=== PATIENT | female | born 1960 | race Asian ===

== ENCOUNTER 2017-04-01 05:41 | Outpatient (CLI) | payer BC ==
[~2017-04-01] VITALS: Ht 165.1 cm; Wt 55.8 kg
[~2017-04-01 05:41] MED LIST: SITA1TAB2 PO
[2017-04-01] MEDS ORDERED: SITA1TAB6 PO (11:15)
[2017-04-01] MEDS ORDERED: ATOR20TA66 PO (11:15)
== END 2017-04-01 11:35 ==
LOC: PREOP 05:41
PROVIDERS: ATTEND Internal Medicine
DX: Z01.818 Encounter for other preprocedural examination (principal); Z86.010 Personal history of colon polyps

== ENCOUNTER 2017-04-03 07:27 | Day surgery (SDC) | payer BC ==
[~2017-04-03] VITALS: Ht 165.1 cm; Wt 55.8 kg
[~2017-04-03 07:27] MED LIST changes: +ATOR20TA66 PO; +SITA1TAB6 PO
--- OUTSIDE RECORDS SUMMARY | 2017-04-03 07:30 | XMS REPORT | Continuity of Care Document ---
Author Author [facility] Address Unknown Phone Unavailable Care Team Providers Care Accountant Assistant Name Role Phone No Pcp, Na PCP Unavailable Source Comments Some departments are not documenting in the electronic medical record. If you do not see the information that you expected, contact Release of Information in the Health Information Management department at [phone] for further assistance in locating additional records.[facility] Active Allergies and Adverse Reactions No Known Allergies Current Medications Prescription Sig. Disp. Refills Start End Date Status Date sitaGLIPtin (JANUVIA) 100 Take 100 mg by mouth Active mg tab tablet daily. atorvastatin (LIPITOR) 10 Take 10 mg by mouth Active mg tablet daily. Active Problems Problem Noted Date Right shoulder pain 02/25/2016 Social History Tobacco Use Types Packs/Day Years Used Date Never Smoker Smokeless Tobacco: Never Used Tobacco Cessation: Counseling Given: Yes Comments: Alcohol Use Drinks/Week oz/Week Comments No 0 Standard 0.0 drinks or equivalent Last Filed Vital Signs Vital Sign Reading Time Taken Blood Pressure 131/76 02/25/2016 2:46 PM CDT Pulse 89 02/25/2016 2:46 PM CDT Temperature - - Respiratory Rate - - Height 1.651 m (5' 5") 02/25/2016 2:46 PM CDT Weight 59.421 kg (131 lb) 02/25/2016 2:46 PM CDT Body Mass Index 21.8 02/25/2016 2:46 PM CDT Oxygen Saturation - - Plan of Care Health Maintenance Due Date Last Done Comments Hepatitis C Screening 1959 Physical (Comprehensive) 1966 Exam Pertussis Vaccine 1970 Tetanus Vaccine 02/21/1976 Cervical Cancer Screening 02/21/1980 Breast Cancer Screening 1999 Colorectal Cancer 2009 Screening Influenza Vaccine 05/22/2017 Results from Last 3 Months Not on file
--- OUTSIDE RECORDS SUMMARY | 2017-04-03 07:31 | XMS REPORT | Continuity of Care Document ---
Author Author [facility] Organization [facility] Address Unknown Phone Unavailable Allergies Active Description Code Type Severity Reaction Onset Reported/Identified Relationship to Patient Clinical Status Yes No Allergy Information Available [id number] Drug Allergy Unknown N/A 04/09/2012 Yes No Known Drug Allergies [id number] Drug Allergy Unknown N/ A 04/01/2017 Medications Problems Date Dx Coded Attending Type Code Diagnosis Diagnosed By 04/09/2012 Ot 211.3 BENIGN NEOPLASM LG BOWEL 04/09/2012 Ot 250.00 DIAB JUNE WO COMPL, TYPE II OR UNSPEC TY 04/09/2012 Ot 618.04 RECTOCELE 04/09/2012 Ot V76.51 SCREEN MAL NEOP-COLON 04/12/2015 KATLIN TABARSE MD Ot V76.12 04/01/2016 Ot V76.12 OTH SCREEN MAMMO-MALIGN NEOPLASM OF KEVIN 04/01/2016 Ot V72.84 EXAM PRE-OPERATIVE NOS 04/01/2016 Ot V76.12 OTH SCREEN MAMMO-MALIGN NEOPLASM OF KEVIN 04/01/2016 KATLIN TABARES MD Ot V76.12 OTH SCREEN MAMMO-MALIGN NEOPLASM OF KEVIN 04/01/2016 SANKET SANDY DO Ot 627.2 SYMPT MENOPAUSE OR FEMALE CLIMACTERIC ST 04/01/2016 KATLIN TABARES MD Ot V76.12 OTH SCREEN MAMMO-MALIGN NEOPLASM OF KEVIN 04/02/2016 KATLIN TABARES MD Ot Z12.31 ENCNTR SCREEN MAMMOGRAM FOR MALIGNANT NE 04/18/2016 KATLIN TABARES MD Ot Z12.31 ENCNTR SCREEN MAMMOGRAM FOR MALIGNANT NE Procedures Results Encounters ACCT No. Visit Date/Time Discharge Status Pt. Type Provider Facility Loc./Unit Complaint [id number] 04/01/2017 05:41:00 2016 11:35:00 DIS Outpatient KATLIN TABARES MD [facility] PREOP SCREENING COLONOSCOPY [id number] 03/30/2015 10:16:00 2014 23:59:59 CLS Outpatient KATLIN TABARES MD [facility] RAD [id number] 09/16/2013 08:20:00 2012 23:59:59 CLS Outpatient [facility] [facility]ET Hodgson [facility] RAD [id number] 06/21/2013 15:07:00 2012 23:59:59 CLS Outpatient KATLIN TABARES MD [facility] RAD [id number] 04/03/2017 08:45:00 PEN KATLIN Melchor MD [facility] ENDO SCREENING/ HX POLYPS [id number] 03/23/2017 11:02:00 PEN Preadmit KATLIN TABARES MD [facility] RAD ROUTINE SCREENING [id number] 04/01/2016 09:22:00 ACT Outpatient KATLIN TABARES MD [facility] RAD [id number] 05/12/2012 15:27:00 Document Registration [id number] 04/09/2012 07:57:00 Document Registration [id number] 04/07/2012 07:04:00 Document Registration [id number] 04/15/2011 09:49:00 Document Registration
[2017-04-03] MEDS ORDERED: 1/2 NS IV SOLUTION 1,000 ML IV STA (07:36)
[2017-04-03] MEDS ORDERED: LIDOCAINE JELLY 2% (XYLOCAINE) 5 ML TUBE MM PRN (07:45)
[2017-04-03] MEDS ORDERED: MIDAZOLAM 2 MG/2 ML (VERSED) VIAL IVP PRN (07:45)
--- NOTE | 2017-04-03 07:52 | Pre-Op Note & Conscious Sedat ---
Pre-Operative Progress Note H&P Reviewed The H&P was reviewed, patient examined and no changes noted. Date H&P Reviewed: Apr 03, 2017 Time H&P Reviewed: 07:51 Conscious Sedation Pre-Proced ASA Class: 2 Airway Mallampati Classification: (tejon appropriate class) I. II. III, IV Lungs Heart ASA score ASA 1: a normal healthy patient ASA 2: a patient with a mild systemic disease (mid diabetes, controlled hypertension, obesity ASA 3: a patient with a severe systemic disease that limits activity (angina , COPD, prior Myocardial infarction) ASA 4: a patient with an incapacitating disease that is a constant threat to life (CHF, renal failure) ASA 5: a moribund patient not expected to survive 24 hrs. (ruptured aneurysm) ASA 6: a declared brain patient whose organs are being harvested. For emergent operations, add the letter E after the classification Grade 2 Sedation Plan: Analgesia, Amnesia, Plan communicated to team members, Discussed options with patient/fam, Discussed risks with patient/fam Note The patient is an appropriate candidate to undergo the planned procedure, sedation, and anesthesia. The patient immediately re-assessed prior to indication. KATLIN TABARES MD Apr 03, 2017 07:51
[2017-04-03 07:55] VITALS: BP 127/70
[2017-04-03] MEDS ORDERED: fentaNYL INJECTION 100 MCG/2 ML AMP ONE (08:07)
[2017-04-03] MEDS ORDERED: LIDOCAINE JELLY 2% (XYLOCAINE) 5 ML TUBE ONE (08:07)
[2017-04-03] MEDS ORDERED: MIDAZOLAM 2 MG/2 ML (VERSED) VIAL ONE ×2 (08:07→08:08)
[2017-04-03] MEDS: fentaNYL INJECTION 100 MCG/2 ML AMP IVP PRN ×2 (08:24→08:35)
[2017-04-03 09:05] VITALS: BP 121/77
[2017-04-03 09:35] VITALS: BP 124/77
[2017-04-03 10:10] VITALS: BP 124/77
--- NOTE | 2017-04-03 11:02 | HISTORY AND PHYSICAL ---
DATE OF ADMISSION: 04/03/2017 Ms. Feldman is a 57-year-old white female who presented to the office on 03/23/2017 for a routine follow-up for diabetes type 2. She had undergone her first colonoscopy 5 years ago, at which time she had one tubular adenoma removed from the hepatic flexure. She is being set-up for surveillance colonoscopy. She reports that she has been feeling well. She has been exercising on a regular basis and has maintained normal weight. Her A1c was down from 7.1% to 6.6%. She denies any chest discomfort, dyspnea on exertion, orthopnea, PND, pedal edema or numbness in her feet. Her energy level has been good. FAMILY HISTORY: She is not aware of any family history for colon cancer or polyps. 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 She is with adult children. PHYSICAL EXAMINATION: Reveals an [place] female who appears to be in no acute distress. She is alert, well kempt and articulate. Weight is stable at 123.4 pounds. Blood pressure 140/76. NECK: Revealed no JVD, adenopathy, bruits or thyroid abnormalities to palpation. She is a Mallampati class I pharyngeal configuration. Pharynx is clear. CHEST: Clear. CV: Revealed a regular rate and rhythm without murmur, S3 or S4. ABDOMEN: Soft, supple without masses, organomegaly or tenderness. EXTREMITIES: Reveal no cyanosis, clubbing, or edema. Sensation is intact. No calluses corns or evidence for tinea pedis or onychomycosis are noted. ASSESSMENT: 1. Type 2 diabetes mellitus, under good control without evidence for complication. She was praised for her efforts. I pointed out the positive impact it was having on her blood sugar control and reducing future risk for diabetic complication. 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 2. History of colon polyps. The patient is set-up for surveillance colonoscopy on 04/03/2017 as it has been 5 years since her last procedure. At that time she had a tubular adenoma removed from the hepatic flexure. Prep instructions with the H[employer]ado-prep kit were given and questions were answered. I am her primary care physician. Job ID: [id number] Dictated Date: 03/23/2017 16:06:00 Registration Specialist Date: 03/23/2017 17:11:45/garrison
--- NOTE | 2017-04-06 09:02 | PROCEDURE REPORT ---
PROCEDURE PHYSICIAN: KATLIN TABARES DATE OF PROCEDURE: 04/03/2017 INDICATION FOR THE PROCEDURE: Screening colonoscopy. PROCEDURE: The patient was placed in the left lateral decubitus position. Prior to undergoing colonoscopy, digital rectal evaluation was performed. Anal sphincter tone was normal and the perianal reflex was intact. No abnormalities were noted to digital inspection of the anal canal or distal rectal vault. The colonoscope was then inserted into the rectum and under visualization, advanced to cecum. The cecum was identified by identification of the cecal valve and cecal strap. Photographic documentation was performed. Careful inspection was made as colonoscope was withdrawn. FINDINGS: There were no evidence for internal or external hemorrhoids and the rectum was unremarkable. The sigmoid colon was unremarkable as well. There was one diminutive 2 mm sessile hyperplastic appearing polyp noted in the distal transverse colon. Due to its location I was only able to grasp below the base and cauterize. A photograph was obtained prior to cauterization. There was no evidence to suggest any remaining polyp tissue but it was not submitted as I was not able to grasp the head of small polyp. There was no subsequent blood loss. The remainder of the transverse colon was unremarkable. Present in the mid ascending and distal descending colon were 2 diminutive polyps. They were photographed and biopsied and ablated with no subsequent blood loss. No other abnormalities were noted in the remainder colonoscopy to the cecum. ASSESSMENT: 3 diminutive polyps were removed, only 2 were submitted as noted above all with benign appearance. There was no subsequent blood loss. This was an otherwise normal colonoscopy to cecum. We will await histopathology report before recommending future surveillance colonoscopy interval will likely be 5 years considering this patient's past history of colonic polyps. Job ID: [id number] Dictated Date: 04/03/2017 10:25:18 Business Analysis Specialist Date: 04/06/2017 08:53:05 / nestor
== END 2017-04-03 10:10 | disposition home or self-care (01) ==
LOC: ENDO 07:27
PROVIDERS: ATTEND Internal Medicine
DX: Z12.11 Encounter for screening for malignant neoplasm of colon (principal); D12.2 Benign neoplasm of ascending colon; D12.4 Benign neoplasm of descending colon; Z86.010 Personal history of colon polyps; E11.9 Type 2 diabetes mellitus without complications; Z79.899 Other long term (current) drug therapy
CPT/HCPCS: 82962

== ENCOUNTER → 2017-04-14 | Outpatient (CLI) | payer BC ==
--- NOTE | 2017-04-16 14:29 | Diagnostic Imaging Report ---
Bilateral screening mammogram 2D views with tomosynthesis. The current study was also evaluated with a Computer Aided Detection (CAD) system. INDICATION: Screening. No current complaints stated on the questionnaire. COMPARISON: 04/01/16. FINDINGS: The breasts are composed of scattered fibroglandular densities. There are benign-appearing calcifications seen. Benign-appearing calcifications of secretory type are prominent in the medial inferior aspect of the left breast. Allowing for technique and positional differences, no suspicious change is seen. IMPRESSION: No significant change. ACR BI-RADS Category 2: Benign findings. Result letter will be mailed to the patient. Note: At least 10% of breast cancer is not imaged by mammography. Dictated by: Dictated on workstation # [id number]
== END ==
LOC: RAD 13:12
PROVIDERS: ATTEND Internal Medicine
DX: Z12.31 Encounter for screening mammogram for malignant neoplasm of breast (principal)
CPT/HCPCS: 77067

== ENCOUNTER → 2018-04-15 | Outpatient (CLI) | payer BC ==
--- NOTE | 2018-04-15 14:32 | Diagnostic Imaging Report ---
EXAMINATION: Digital mammogram bilateral screening with 3D tomosynthesis. INDICATION: Screening. COMPARISON: This study was compared to the prior exams of 04/14/2017, 04/01/2016, and 03/30/2015. At this time, there are no current complaints. The current study was also evaluated with Computer Aided Detection (CAD) system. FINDINGS: The fibroglandular tissue in both breasts is heterogeneously dense. This does limit the sensitivity of this exam. Overall, there does not appear to have been any significant change when compared to the prior study. No primary or secondary sign of malignancy is noted. 3D tomographic images fail to show any sign of malignancy. IMPRESSION: There is no radiographic evidence for malignancy. ACR BI-RADS Category 1: Negative. Result letter will be mailed to the patient. Note: At least 10% of breast cancer is not imaged by mammography. Dictated by: Dictated on workstation # [id number]
== END ==
LOC: RAD 10:02
PROVIDERS: ATTEND Internal Medicine
DX: Z12.31 Encounter for screening mammogram for malignant neoplasm of breast (principal)
CPT/HCPCS: 77067

== ENCOUNTER → 2019-08-30 | Outpatient (CLI) | payer BC ==
--- NOTE | 2019-08-30 10:11 | Diagnostic Imaging Report ---
INDICATION: Screening The current study was also evaluated with a Computer Aided Detection (CAD) system. 3-D Tomographic imaging was also performed. Comparison made with prior examination of 04/15/2018, 04/14/2017 and 04/01/2016. FINDINGS: There are scattered fibroglandular densities bilaterally. There are benign type calcifications scattered throughout both breasts. There is no dominant mass, spiculated lesion or suspicious calcification identified. Skin, nipples and axilla are unremarkable. IMPRESSION: Category 2 benign. ACR BI-RADS Category 2: Benign findings. Result letter will be mailed to the patient. Note: At least 10% of breast cancer is not imaged by mammography. Dictated by: Dictated on workstation # [id number]
== END ==
LOC: RAD 09:31
PROVIDERS: ATTEND Internal Medicine
DX: Z12.31 Encounter for screening mammogram for malignant neoplasm of breast (principal)
CPT/HCPCS: 77067

== ENCOUNTER → 2021-01-10 | Outpatient (CLI) | payer BC ==
--- NOTE | 2021-01-10 12:59 | Diagnostic Imaging Report ---
Indication: Routine screening Comparison is made with prior mammogram from 08/30/2019 and 04/15/2018. 2-D and 3-D bilateral screening mammography was performed with CAD. Both breasts remain heterogeneously dense, limiting the sensitivity of mammography. Benign calcifications in both breasts are again noted. There is no mass or malignant appearing microcalcifications. Axillae are unremarkable. IMPRESSION: BI-RADS Category 2 No mammographic features suspicious for malignancy are identified. ACR BI-RADS Category 2: Benign findings. Result letter will be mailed to the patient. Note: At least 10% of breast cancer is not imaged by mammography. Dictated by: Dictated on workstation # [id number]
== END ==
LOC: RAD 10:18
PROVIDERS: ATTEND Internal Medicine
DX: Z12.31 Encounter for screening mammogram for malignant neoplasm of breast (principal)
CPT/HCPCS: 77063; 77067

== ENCOUNTER 2021-01-31 10:40 | Outpatient (RCR) | payer BC ==
[~2021-01-31] VITALS: Ht 165.1 cm; Wt 55.0 kg
[2021-02-05] MEDS ORDERED: OMEP20CA18 PO (07:58)
== END 2021-05-01 | disposition home or self-care (01) ==
LOC: PREOP 10:40
PROVIDERS: ATTEND Internal Medicine
DX: Z01.818 Encounter for other preprocedural examination (principal)

== ENCOUNTER → 2021-02-01 | Outpatient (CLI) | payer BC ==
[~2021-02-01] MED LIST changes: +OMEP20CA18 PO
== END ==
LOC: LABNPT 08:48
PROVIDERS: ATTEND Internal Medicine
DX: Z20.822 Contact with and (suspected) exposure to COVID-19 (principal)
CPT/HCPCS: 87635

== ENCOUNTER 2021-02-05 07:01 | Day surgery (SDC) | payer BC ==
--- NOTE | 2021-01-31 20:27 | HISTORY AND PHYSICAL ---
DATE OF SERVICE: EGD HISTORY AND PHYSICAL DATE OF ADMISSION: 02/05/2021. HISTORY OF PRESENT ILLNESS: The patient is a 60-year-old white female seen for followup of type 2 diabetes. She reports she has been having a 1-month history of epigastric pain. It is improved with Zantac that she takes at bedtime, if does not, she wakes up with epigastric pain. She denies any radiation of her pain into the chest or the back. She denies associated nausea. She denies aspirin or nonsteroidal medication usage. She has not had pain like this before. She has not been aware of melena or bright red blood per rectum. If she eats, her discomfort seems to be better for a while. She reports that her weight has been stable and her weight was up only a tenths of a pound compared to her last office visit in April of last year. PHYSICAL EXAMINATION: GENERAL: Reveals a white female appeared to be in no acute distress. VITAL SIGNS: Blood pressure 150/80. ABDOMEN: Reveals some epigastric discomfort to palpation without rebound or guarding. Bowel sounds positive. No distention noted. No rebound or guarding noted. No mass or organomegaly appreciated. CHEST: Clear to auscultation. CARDIOVASCULAR: Reveals a regular rate and rhythm without murmur, S3 or S4. EXTREMITIES: Reveal no cyanosis, clubbing or edema. LABORATORY DATA: Blood tests were reviewed with the patient including a chemistry panel that revealed a fasting sugar of 135, otherwise normal. Unremarkable lipid panel with an HDL of 44 and LDL of 58 and triglyceride level of 121 with an A1c of 7. ASSESSMENT AND PLAN: 1. For further investigation of epigastric pain requiring regular H2 cara therapy, the patient is being set up for EGD on the . Prep instructions were given and questions were answered. 2. Type 2 diabetes mellitus under reasonable control. See above. Follow up in three months. Continue [id number] 150 mg Zantac at bedtime for now. Further recommendations pending EGD evaluation. Job ID: [id number] DocumentID: [id number] Dictated Date: 01/30/2021 16:48:53 Salvage Engineer Date: 01/30/2021 17:46:32 Dictated By: KATLIN TABARES MD
[2021-02-05] VITALS (9 sets, daily range): BP systolic 107–156; BP diastolic 58–80
[~2021-02-05] VITALS: Ht 165.1 cm; Wt 55.0 kg
[~2021-02-05 07:01] MED LIST changes: -OMEP20CA18 PO
[2021-02-05] MEDS ORDERED: LACTATED RINGERS 1,000 ML IV ONE ×2 (07:03→07:45)
[2021-02-05] MEDS ORDERED: D5 LR IV SOLUTION 1,000 ML IV STA (07:04)
[2021-02-05] MEDS ORDERED: HURRICAINE EXT TUBE (BENZOCAINE) XX PRN (07:15)
[2021-02-05] MEDS ORDERED: MIDAZOLAM 5 MG/5 ML (VERSED) VIAL IV ONE (07:15)
[2021-02-05] MEDS ORDERED: fentaNYL INJ 100 MCG/2 ML AMP IVP ONE (07:15)
[2021-02-05] MEDS ORDERED: LIDOCAINE JELLY 2% 6 ML SYRINGE MM PRN (07:15)
[2021-02-05] MEDS ORDERED: LIDOCAINE JELLY 2% 6 ML SYRINGE ONE (07:19)
[2021-02-05] MEDS ORDERED: fentaNYL INJ 100 MCG/2 ML AMP ONE (07:20)
[2021-02-05] MEDS ORDERED: MIDAZOLAM 5 MG/5 ML (VERSED) VIAL ONE (07:20)
[2021-02-05] MEDS ORDERED: HURRICAINE EXT TUBE (BENZOCAINE) ONE (07:20)
--- NOTE | 2021-02-05 07:56 | Pre-Op Note & Conscious Sedat ---
Pre-Operative Progress Note H&P Reviewed The H&P was reviewed, patient examined and no changes noted. Date H&P Reviewed: February 05, 2021 Time H&P Reviewed: 07:30 Conscious Sedation Pre-Proced ASA Score 2 For ASA 3 and 4: Consider anesthesia and medical clearance. Also, for patients with a history of failed moderate sedation consider anesthesia. Airway Lungs Heart ASA score ASA 1: a normal healthy patient ASA 2: a patient with a mild systemic disease (mid diabetes, controlled hypertension, obesity ASA 3: a patient with a severe systemic disease that limits activity (angina, COPD, prior Myocardial infarction) ASA 4: a patient with an incapacitating disease that is a constant threat to life (CHF, renal failure) ASA 5: a moribund patient not expected to survive 24 hrs. (ruptured aneurysm) ASA 6: a declared brain- patient whose organs are being harvested. For emergent operations, add the letter E after the classification Mallampati Classification Grade 2 Sedation Plan Analgesia, Amnesia, Plan communicated to team members, Discussed options with patient/fam, Discussed risks with patient/fam The patient is an appropriate candidate to undergo the planned procedure, sedation, and anesthesia. The patient immediately re-assessed prior to indication. KATLIN TABARES MD February 05, 2021 07:56
[2021-02-05] MEDS ORDERED: OMEP20CA18 PO (07:58)
--- NOTE | 2021-02-05 12:35 | OPERATIVE REPORT ---
DATE OF SERVICE: EGD SUMMARY INDICATION FOR THE PROCEDURE: Nausea, abdominal pain, weight loss. DESCRIPTION OF PROCEDURE: The patient was placed in the left lateral decubitus position. The endoscope was inserted into the oral cavity and under direct visualization, esophagus was intubated. The endoscope was passed down the esophagus, stomach and second portion of the duodenum. Careful inspection was made as the endoscope was withdrawn. The patient tolerated the procedure well. FINDINGS: Proximal, mid and distal esophagus were unremarkable. No evidence for erosive esophagitis was noted. No evidence of rings, webs, strictures were noted. No evidence for any significant hiatal hernia was noted. The cardia and the fundus of the stomach were unremarkable. There were punctate areas of rather diffuse antral erythema without evidence for ulceration or erosion. Biopsy was obtained and submitted for Helicobacter. The pylorus, the pyloric channel were unremarkable, present in the distal duodenal bulb was a 1 cm shallow benign appearing ulceration. No visible vessel formation was noted and no blood was noted in the duodenal bulb or second portion of the duodenum. Cause a small amount of narrowing, but was easily able to intubate the second portion of the duodenum, which was unremarkable. ASSESSMENT: Distal duodenal bulb ulceration 1 cm in size without stigmata to suggest significant bleeding risk was noted. It does result in some mild narrowing, but no evidence for obstruction. This with some antral gastritis does suggest underlying Helicobacter for which biopsies are pending. The patient was advised to abstain from aspirin and nonsteroidal medication, which she does not normally consume and omeprazole will be initiated daily for now until results of biopsies for histopathology and Helicobacter are available. I will innitiate Helicobacter eradication therapy if Helicobacter is noted. Job ID: [id number] DocumentID: [id number] Dictated Date: 02/05/2021 08:06:56 Lithograph Press Operator Tinware Date: 02/05/2021 12:34:50 Dictated By: KATLIN TABARES MD [facility]
== END 2021-02-05 08:36 | disposition home or self-care (01) ==
LOC: ENDO 07:01
PROVIDERS: ATTEND Internal Medicine
DX: K26.9 Duodenal ulcer, unspecified as acute or chronic, without hemorrhage or perforation (principal); K31.89 Other diseases of stomach and duodenum; K31.5 Obstruction of duodenum; R63.4 Abnormal weight loss; E11.9 Type 2 diabetes mellitus without complications

== ENCOUNTER → 2022-02-19 | Outpatient (CLI) | payer BC ==
[~2022-02-19] MED LIST changes: +OMEP20CA18 PO
--- NOTE | 2022-02-19 17:56 | Diagnostic Imaging Report ---
INDICATION: Routine screening. Comparison is made with prior mammogram 01/08/2021 and 08/30/2019. 2-D and 3-D bilateral screening mammography was performed with CAD. Both breasts are heterogeneously dense, limiting the sensitivity of mammography. Benign calcifications are noted bilaterally. Overall parenchymal pattern is stable. No mass or malignant-appearing microcalcifications are seen. Axillae are unremarkable. IMPRESSION: No mammographic features suspicious for malignancy are identified. ACR BI-RADS Category 2: Benign findings. Result letter will be mailed to the patient. Note: At least 10% of breast cancer is not imaged by mammography. BI-RADS Category 2 Dictated by: Dictated on workstation # [id number]
== END ==
LOC: RAD 09:49
PROVIDERS: ATTEND Internal Medicine
DX: Z12.31 Encounter for screening mammogram for malignant neoplasm of breast (principal)
CPT/HCPCS: 77063; 77067

== ENCOUNTER → 2023-04-01 | Outpatient (CLI) | payer BC | LOC: PREOP 05:41 | PROVIDERS: ATTEND Internal Medicine | DX: Z01.818 Encounter for other preprocedural examination (principal) ==